=== PATIENT | female | born 1930 | race Caucasian/White ===

== ENCOUNTER 2021-01-10 09:23 | Day surgery (SDC) | payer MEDICARE, OTHER ==
[~2021-01-10] VITALS: Ht 147.3 cm; Wt 55.0 kg
[2021-01-10] VITALS (10 sets, daily range): BP systolic 104–151; BP diastolic 55–91
[~2021-01-10 09:23] MED LIST: ASCO-10 PO; ASPI-1264 PO; ATOR20TA66 PO; CALC-729 PO; CARV-50 PO; CHOL400T32 PO; FLUT16SP10; FURO40TA4 PO; HYDR-4353 PO; MULT1TAB PO; OMEG10007 PO; OMEP-84 PO; POTA20TA39 PO; SENN-93 PO; VALS160T2 PO
[2021-01-10] MEDS ORDERED: normal saline 1,000 ML IV SCH (10:20)
[2021-01-10] MEDS ORDERED: diphenhydrAMINE 25mg capsule PO PRN (10:20)
[2021-01-10 10:25] LABS: BASOPHILS % (AUTO) 0.9 % (0-1); EOSINOPHILS # (AUTO) 0.1 X10'3 (0-0.9); EOSINOPHILS % (AUTO) 2.6 % (0-6); HEMATOCRIT 41.1 % (35.0-45.0); HEMOGLOBIN 13.5 g/dl (12.0-16.0); LYMPHOCYTES # (AUTO) 1.1 X10'3 (1.1-4.8); LYMPHOCYTES % (AUTO) 27.8 % (21-51); MEAN CORPUSCULAR HEMOGLOBIN 31.4 PG (27.0-31.0); MEAN CORPUSCULAR HGB CONC 32.8 g/dL (33.0-36.5); MEAN CORPUSCULAR VOLUME 95.6 FL (78-98); MEAN PLATELET VOLUME 7.7 FL (7.4-10.4); MONOCYTES # (AUTO) 0.3 X10'3 (0-0.9); MONOCYTES % (AUTO) 8.9 % (2-12); NEUTROPHILS # (AUTO) 2.3 X10'3 (1.8-7.7); NEUTROPHILS % (AUTO) 59.8 % (42-75); PLATELET COUNT 222 X10'3 (140-440); RED CELL DISTRIBUTION WIDTH 13.1 % (11.5-14.5); WHITE BLOOD COUNT 3.9 X10'3 (4.5-11.0)
[2021-01-10 10:26] LABS: ALBUMIN 4.3 G/DL (3.4-5.0); ANION GAP 8 (8-16); BLOOD UREA NITROGEN 22 MG/DL (7-18); BUN/CREATININE RATIO 24.2 (6.6-38.0); CALCIUM 9.1 MG/DL (8.5-10.1); CHLORIDE 102 MMOL/L (99-107); CREATININE 0.91 MG/DL (0.40-0.90); GLUCOSE 102 MG/DL (70-104); MAGNESIUM 2.2 MG/DL (1.5-2.4); POTASSIUM 4.2 MMOL/L (3.5-5.1); SODIUM 143 MMOL/L (135-145); TOTAL CARBON DIOXIDE 33.5 MMOL/L (24-32); eGFR 58 ML/MIN
[2021-01-10] MEDS ORDERED: LOSA50TA64 PO (10:26)
[2021-01-10] MEDS ORDERED: DULO60CA65 PO (10:26)
[2021-01-10] MEDS ORDERED: RIVA15TA PO (10:26)
[2021-01-10] MEDS ORDERED: LAN0.125T PO (10:26)
[2021-01-10] MEDS ORDERED: CARV25TA2 PO (10:26)
[2021-01-10] MEDS ORDERED: CYAN250014 PO (10:26)
[2021-01-10] MEDS ORDERED: ZINC50TA67 PO (10:26)
[2021-01-10] MEDS ORDERED: fentaNYL/PF 50MCG/1 ML 2ML syringe ONE (11:27)
[2021-01-10] MEDS ORDERED: midazolam 1 mg/ML 2ml injection ONE (11:27)
[2021-01-10] MEDS ORDERED: LIDOcaine 1% (10mg/ml)w/preservative injection 20ml MDV ONE (11:28)
[2021-01-10] MEDS ORDERED: iohexol 350MG/ML 100ml bottle IV ONE (11:28)
[2021-01-10] MEDS ORDERED: iohexol 350 MG/ML 50ML vial IV ONE (11:28)
[2021-01-10] MEDS ORDERED: heparin 1,000unit/ml 10ml vial 10 ML ONE (11:28)
[2021-01-10] MEDS ORDERED: protamine sulfate 10mg/ml inj. ONE (12:35)
[2021-01-10] MEDS ORDERED: ondansetron/PF 4mg/2ml inj IV PRN (13:10)
[2021-01-10] MEDS ORDERED: HYDROcodone/acetaminophen 5mg/325mg tablet PO PRN (13:10)
[2021-01-10] MEDS ORDERED: proCHLORperazine 10 MG/2 ml inj IV PRN (13:10)
[2021-01-10] MEDS ORDERED: HYDROcodone/acetaminophen 10/325mg tab PO PRN (13:10)
== END 2021-01-10 17:04 | disposition home or self-care (01) ==
LOC: SSTAY O 09:23
PROVIDERS: ATTEND Internal Medicine Cardiovascular Disease
DX: R07.89 Other chest pain (principal); I44.7 Left bundle-branch block, unspecified; I42.0 Dilated cardiomyopathy; I44.2 Atrioventricular block, complete; I47.1 Supraventricular tachycardia; G47.30 Sleep apnea, unspecified; I47.2 Ventricular tachycardia; I10 Essential (primary) hypertension; E78.5 Hyperlipidemia, unspecified; K21.9 Gastro-esophageal reflux disease without esophagitis; I48.91 Unspecified atrial fibrillation; D64.9 Anemia, unspecified; G89.29 Other chronic pain; M19.90 Unspecified osteoarthritis, unspecified site; Z86.16 Personal history of COVID-19; Z95.0 Presence of cardiac pacemaker; Z79.899 Other long term (current) drug therapy; Z98.890 Other specified postprocedural states; Z96.651 Presence of right artificial knee joint; Z87.891 Personal history of nicotine dependence
CPT/HCPCS: 36415; 80048; 83735; 85025; 85610; 93005; 93458; 99152; C1760; C1769; C1894; J1644; J2001; J2250; J2720; J3010; J7030; Q0163; Q9967; 99153; A4620; A6258

== ENCOUNTER 2021-05-02 10:13 | Day surgery (SDC) | payer MEDICARE, OTHER ==
[2021-05-02] VITALS (8 sets, daily range): BP systolic 113–156; BP diastolic 46–79
[~2021-05-02] VITALS: Ht 172.7 cm; Wt 56.8 kg
[~2021-05-02 10:13] MED LIST changes: -ATOR20TA66 PO; -CALC-729 PO; -CARV-50 PO; +CARV25TA2 PO; +CYAN250014 PO; +DULO60CA65 PO; +LAN0.125T PO; +LOSA50TA64 PO; -OMEP-84 PO; +RIVA15TA PO; -VALS160T2 PO; +ZINC50TA67 PO
[2021-05-02] MEDS ORDERED: vancomycin/NS 1 GM ADD-VANTAGE 250 ML IV ONE (11:05)
[2021-05-02] MEDS ORDERED: normal saline 1000ml 1,000 ML IV SCH ×2 (11:05→14:45)
[2021-05-02] MEDS ORDERED: cefazolin/dext.iso 2gm/100ml 100 ML IV ONE (11:05)
[2021-05-02] MEDS ORDERED: fentaNYL/PF 50MCG/1 ML 2ML syringe ONE ×2 (11:49→13:00)
[2021-05-02] MEDS ORDERED: vancomycin 1,000mg inj ONE (11:50)
[2021-05-02] MEDS ORDERED: midazolam 1 mg/ML 2ml injection ONE ×2 (11:50)
[2021-05-02 12:00] LABS: BASOPHILS % (AUTO) 0.6 % (0-1); EOSINOPHILS # (AUTO) 0.1 X10'3 (0-0.9); EOSINOPHILS % (AUTO) 1.6 % (0-6); HEMATOCRIT 37.2 % (35.0-45.0); HEMOGLOBIN 12.5 g/dl (12.0-16.0); MEAN CORPUSCULAR HEMOGLOBIN 32.3 PG (27.0-31.0); MEAN CORPUSCULAR HGB CONC 33.5 g/dL (33.0-36.5); MEAN CORPUSCULAR VOLUME 96.4 FL (78-98); MEAN PLATELET VOLUME 7.7 FL (7.4-10.4); MONOCYTES # (AUTO) 0.4 X10'3 (0-0.9); MONOCYTES % (AUTO) 9.3 % (2-12); NEUTROPHILS # (AUTO) 2.4 X10'3 (1.8-7.7); NEUTROPHILS % (AUTO) 61.5 % (42-75); PLATELET COUNT 192 X10'3 (140-440); RED BLOOD COUNT 3.85 X10'6 (4.20-5.60); RED CELL DISTRIBUTION WIDTH 12.4 % (11.5-14.5); WHITE BLOOD COUNT 3.9 X10'3 (4.5-11.0)
[2021-05-02 12:03] LABS: ALBUMIN 3.8 G/DL (3.4-5.0); ANION GAP 6 (8-16); BLOOD UREA NITROGEN 20 MG/DL (7-18); BUN/CREATININE RATIO 21.5 (6.6-38.0); CALCIUM 8.4 MG/DL (8.5-10.1); CHLORIDE 102 MMOL/L (99-107); CREATININE 0.93 MG/DL (0.40-0.90); GLUCOSE 92 MG/DL (70-104); MAGNESIUM 2.2 MG/DL (1.5-2.4); POTASSIUM 4.1 MMOL/L (3.5-5.1); SODIUM 140 MMOL/L (135-145); TOTAL CARBON DIOXIDE 31.8 MMOL/L (24-32); eGFR 57 ML/MIN
[2021-05-02] MEDS ORDERED: LIDOCAINE 2% w/EPI 1:100:000 30mL injection MDV**cath lab 1 only ONE (12:36)
[2021-05-02] MEDS ORDERED: proCHLORperazine 10 MG/2 ml inj ONE (12:48)
[2021-05-02] MEDS ORDERED: iohexol 350MG/ML 100ml bottle IV ONE (13:25)
[2021-05-02] MEDS ORDERED: HYDROcodone/acetaminophen 10/325mg tab PO PRN (14:45)
[2021-05-02] MEDS ORDERED: HYDROcodone/acetaminophen 5mg/325mg tablet PO PRN (14:45)
== END 2021-05-02 17:00 | disposition home or self-care (01) ==
LOC: SSTAY O 10:13
PROVIDERS: ATTEND Internal Medicine Cardiovascular Disease
DX: Z45.010 Encounter for checking and testing of cardiac pacemaker pulse generator [battery] (principal); I42.0 Dilated cardiomyopathy; I47.2 Ventricular tachycardia; I44.2 Atrioventricular block, complete; I48.0 Paroxysmal atrial fibrillation; I47.1 Supraventricular tachycardia; I10 Essential (primary) hypertension; G47.30 Sleep apnea, unspecified; K21.9 Gastro-esophageal reflux disease without esophagitis; E78.5 Hyperlipidemia, unspecified; D64.9 Anemia, unspecified; G89.29 Other chronic pain; M19.90 Unspecified osteoarthritis, unspecified site; Z79.899 Other long term (current) drug therapy; Z86.16 Personal history of COVID-19; Z96.651 Presence of right artificial knee joint; Z98.890 Other specified postprocedural states; Z87.891 Personal history of nicotine dependence; Z88.8 Allergy status to other drugs, medicaments and biological substances
CPT/HCPCS: 33227; 36415; 80048; 83735; 85025; 85610; 93005; 99152; 99153; C1769; C1786; C1894; J0780; J2250; J3010; J3370; Q9967; A4620; A6258